=== PATIENT | female | born 1990 | race Asian ===

== ENCOUNTER 2017-11-17 16:55 | Inpatient (IN) | payer MEDICAID, OTHER ==
[~2017-11-17] VITALS: Ht 152.4 cm; Wt 42.6 kg
[2017-11-17] MEDS ORDERED: CYCL10 PO (17:05)
[2017-11-17 17:18] LABS: ABG A-A DIFF O2 13.2 mmHg (10-20.0); ABG BASE EXCESS -5.2 mmol/L (-2.0-3.0); ABG CARBOXYHEMOGLOBIN 0.8 % (0.0-3.0); ABG HCO3 21.3 mmol/L (22.0-26.0); ABG METHEMOGLOBIN 0.3 % (0.0-1.5); ABG OXYGEN CONTENT 20.5 mL/dL (15.0-23.0); ABG OXYHEMOGLOBIN 97.9 % (94.0-100.0); ABG PCO2 31 mmHg (35-45); ABG PH 7.413 (7.350-7.450); ABG TOTAL HEMOGLOBIN 14.7 G/dL (12.0-18.0); O2 DEVICE,BLOOD GAS CANNULA (ROOM AIR); PO2, ARTERIAL BG 149.4 mmHg (80.0-100.0); SITE, BLOOD GAS LFT BRACHIAL; SOURCE, BLOOD GAS ARTERIAL; TEMPERATURE, FAHRENHEIT, BG 99.6 FAHREN (96.0-98.6)
[2017-11-17 17:56] LABS: BASOPHILS % (AUTO) 0.2 % (0.0-2.0); EOSINOPHILS % (AUTO) 1.1 % (1.0-6.0); HEMATOCRIT 40.9 % (36-46); HEMOGLOBIN 13.7 g/dL (12.0-16.0); LYMPHOCYTES # (AUTO) 2.2 K/uL (1.0-4.8); LYMPHOCYTES % (AUTO) 29.8 % (22.0-44.0); MEAN CORPUSCULAR HGB CONC 33.5 G/dL (31.0-37.0); MEAN CORPUSCULAR VOLUME 90 fL (80-100); MONOCYTES # (AUTO) 0.5 K/uL (0.1-1.0); MONOCYTES % (AUTO) 6.2 % (2.0-9.0); NEUTROPHILS # (AUTO) 4.7 K/uL (1.8-7.7); NEUTROPHILS % (AUTO) 62.7 % (40.0-70.0); PLATELET COUNT (AUTO) 285 K/uL (150-450); RED BLOOD CELL COUNT(AUTO) 4.57 MIL/uL (4.00-5.20); RED CELL DISTRIBUTION WIDTH 12.4 % (11.5-14.5)
[2017-11-17 18:14] LABS: ANION GAP 14 mmol/L (8-16); CALCIUM, TOTAL 9.3 mg/dL (8.8-10.5); CARBON DIOXIDE 20 mmol/L (22-29); CHLORIDE 104 mmol/L (98-107); GLOMERULAR FILTR. RATE CALC > 60 mL/min (>60); GLUCOSE,RANDOM 83 mg/dL (70-110); POTASSIUM 3.8 mmol/L (3.5-5.1); SODIUM SERUM 138 mmol/L (136-145); UREA NITROGEN, BLOOD 14 mg/dL (7-18)
[2017-11-17 18:22] LABS: ACETAMINOPHEN < 2 mcg/mL (10-30); ALANINE AMINOTRANSFERASE 19 U/L (12-78); ALBUMIN 4.1 g/dL (3.4-5.0); ALKALINE PHOSPHATASE 43 U/L (46-116); ASPARTATE AMINOTRANSFERASE 14 U/L (15-37); BILIRUBIN,TOTAL 0.8 mg/dL (0.1-1.0); TOTAL PROTEIN, SERUM 7.7 g/dL (6.4-8.2)
[2017-11-17 18:25] LABS: SALICYLATE < 2.8 mg/dL (2.8-20.0)
[2017-11-17 18:33] LABS: AMPHET/METH SCREEN,URINE NEGATIVE (NEGATIVE); BARBITURATE SCREEN, URINE NEGATIVE (NEGATIVE); BENZODIAZEPINES SCREEN,URINE POSITIVE (NEGATIVE); CANNABINOID SCREEN,URINE NEGATIVE (NEGATIVE); COCAINE SCREEN,URINE NEGATIVE (NEGATIVE); METHADONE SCREEN, URINE NEGATIVE (NEGATIVE); OPIATE SCREEN,URINE NEGATIVE (NEGATIVE)
[2017-11-17 18:35] LABS: PHENCYCLIDINE SCREEN,URINE NEGATIVE (NEGATIVE)
[2017-11-17] MEDS ORDERED: LORazepam 2 MG TABLET PO PRN (20:45)
[2017-11-17] MEDS ORDERED: HALOPERIDOL 5 MG TABLET PO PRN (20:45)
[2017-11-17] MEDS ORDERED: ZOLPIDEM TARTRATE 10 MG TABLET PO PRN (20:45)
[2017-11-17 21:10] LABS: APPEARANCE,URINE CLEAR (CLEAR); BILIRUBIN,URINE NEGATIVE (NEGATIVE); GLUCOSE, URINE (UA) NEGATIVE (NEGATIVE); KETONES,URINE 15 mg/dL (NEGATIVE); LEUKOCYTE ESTERASE ,URINE NEGATIVE (NEGATIVE); NITRATE,URINE NEGATIVE (NEGATIVE); OCCULT BLOOD,URINE NEGATIVE (NEGATIVE); PH,URINE 5.5 (5.0-8.0); PROTEIN,URINE NEGATIVE (NEGATIVE); UROBILINOGEN,URINE 0.2 mg/dL (<=1.0)
[2017-11-17 22:50] VITALS: BP 106/64
[2017-11-18 06:15] VITALS: BP 102/77
[2017-11-18 08:39] VITALS: BP 106/54
[2017-11-18 09:34] LABS: CHOL/HDL RATIO 2.4 (3.9-5.7); CHOLESTEROL 146 mg/dL (131-200); HDL CHOLESTEROL 61 mg/dL (40-60); LDL CHOL (CALC.) 76 mg/dL (0-130); THYROID STIMULATING HORMONE 1.23 uIU/mL (0.36-3.74); TRIGLYCERIDES 45 mg/dL (15-150)
[2017-11-18] MEDS: CYCLOBENZAPRINE HCL 10 MG TABLET PO SCH ×3 (10:17→17:17)
[2017-11-18 16:34] VITALS: BP 104/67
[2017-11-18] MEDS: MIRTAZAPINE 15 MG TABLET PO SCH (20:44)
[2017-11-19 06:14] VITALS: BP 106/73
[2017-11-19] MEDS: CYCLOBENZAPRINE HCL 10 MG TABLET PO SCH ×3 (08:15→16:11)
[2017-11-19 09:00] VITALS: BP 100/52
[2017-11-19 16:24] VITALS: BP 110/65
[2017-11-19] MEDS: MIRTAZAPINE 15 MG TABLET PO SCH (20:45)
[2017-11-20 06:11] VITALS: BP 108/68
[2017-11-20 08:24] VITALS: BP 96/56
[2017-11-20] MEDS: CYCLOBENZAPRINE HCL 10 MG TABLET PO SCH ×3 (08:41→16:12)
[2017-11-20 17:45] VITALS: BP 113/73
[2017-11-20] MEDS ORDERED: MIRTAZAPINE 30 MG TABLET PO SCH (21:00)
[2017-11-21 07:08] VITALS: BP 112/74
[2017-11-21 08:00] VITALS: BP 98/58
[2017-11-21] MEDS ORDERED: MIRT30 PO (08:11)
[2017-11-21] MEDS: CYCLOBENZAPRINE HCL 10 MG TABLET PO SCH (09:38)
== END 2017-11-21 10:45 | disposition home or self-care (01) | DRG 751 ==
LOC: EMS 16:56 → B3A 21:23
PROVIDERS: ADMIT Psychiatry & Neurology Psychiatry; ATTEND Psychiatry & Neurology Psychiatry
DX: F33.2 Major depressive disorder, recurrent severe without psychotic features (principal); I95.9 Hypotension, unspecified; R45.851 Suicidal ideations; F60.3 Borderline personality disorder; F19.10 Other psychoactive substance abuse, uncomplicated; R00.0 Tachycardia, unspecified; F41.9 Anxiety disorder, unspecified; Z79.899 Other long term (current) drug therapy; Z71.51 Drug abuse counseling and surveillance of drug abuser
CPT/HCPCS: 51702; 82805; 84443; 93005; 99291; G0480; G0481